=== PATIENT | female | born 2000 | race Caucasian/White ===

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

== ENCOUNTER 2021-01-14 13:52 | Emergency (ER) | payer OTHER, SELFPAY ==
[2021-01-14 14:43] VITALS: BP 146/77; PULSE 114; RESP 16; TEMP 36.8; O2SAT 99; BMI 28.1
[2021-01-14 14:50] LABS: Apearance,Urine Cloudy (Clear); Bilirubin,Urine Negative (Negative); Blood, Urine Trace (Negative); Color,Urine Amber (Yellow); Glucose,Urine (UA) Negative (Negative); Ketones,Urine Negative (Negative); Protein,Urine Negative (Negative); Specific Gravity, Urine 1.025 (1.005-1.030); UTC Leukocyte Esterase,Urine 1+ (Negative); Urobilinogen,Urine 0.2 EU/dl (0.2)
[2021-01-14 14:51] VITALS: BP 146/77; PULSE 114; RESP 16; TEMP 36.8
[2021-01-14 14:51] LABS: UTC Nitrate,Urine Negative (Negative); UTC Pregnancy Test, Urine Negative (Negative)
--- NOTE | 2021-01-14 15:12 | HMH.EDUTC ---
[facility] [place] Clinical Impression: UTI (urinary tract infection) Qualifiers: Urinary tract infection type: site unspecified Hematuria presence: with hematuria Qualified Code(s): N39.0 - Urinary tract infection, site not specified Disposition: Home, Self-Care Condition on Discharge: Good Instructions: DI for Urinary Tract Infection (UTI) Additional Instructions: Drink plenty of fluids. Take tylenol or ibuprofen for pain or fever. Take the medications as directed. Follow up with your regular doctor. GO TO THE ER FOR ANY WORSENING SYMPTOMS Take the antibiotics as directed. We are culturing your urine. This test takes 3 days and it will identify any bacteria that may be causing your uti symptom and tell which antibiotic would treat it best. Follow up with your primary care physician if you are not getting better to go over these results. Prescriptions: Ibuprofen [Ibuprofen 600mg Tablet] 600 mg PO Q6HP PRN #30 tab PRN Reason: Mild Pain Transmission Status: Received by [email or web address] Cefdinir [Omnicef 300mg Capsule] 300 mg PO BID 7 Days #14 cap Transmission Status: Received by [email or web address] Referrals: Zahida Galdamez [Primary Care Provider] - Time of Disposition: 15:22 Medical Decision Making - Medical Records Medical records reviewed: No: I reviewed the patient's medical records. - Trevon Inquiry Pt receiving controlled substance: No Vital Signs: 01/14/21 14:43 01/14/21 14:51 Temperature 98.3 F 98.3 F Temperature Source Oral Pulse Rate 114 H Pulse Rate [Left] 114 H Respiratory Rate 16 16 Blood Pressure 146/77 H Blood Pressure [Right Arm] 146/77 H Blood Pressure Mean [Right Arm] 100 02 Sat by Pulse Oximetry 99 - Lab Data Lab results reviewed: Yes: I reviewed the patient's lab results. Lab Results 01/14/21 14:49: Urine Color Enrique, Urine Appearance Cloudy, Urine pH 7.0, Ur Specific [place] 1.025, Urine Protein Negative, Urine Glucose (UA) Negative, Urine Ketones Negative, Urine Blood Trace, Urine Nitrate Negative, Urine Bilirubin Negative, Urine Urobilinogen 0.2, Ur Leukocyte Esterase 1+ A, Tst Clinic Negative Orders (Tests/Meds): ORDERS Category Date Time Status Urine Culture Stat Micro 01/14/21 14:43 Results [facility] [place] - General Stated complaint: frequent urination, very tired, test Time Seen by Provider: 01/14/21 15:12 Mode of Arrival: Ambulatory Source of Information: Patient Limitations: No Limitations Description of Symptoms (Recalled from Triage Doc. by RN): pt requests a preg. test. pt reports her mother would not allow her to take one at home. pt states her LMP was 12/27-01/03. pt is also UTD on her depo injection. pt believes she may have gotten on the , or . pt states she has the same symptoms as she had with her previous . pt states her breasts are sore, when she urinates she has to lay down after, and that her urine is usally yellow and now it is clear. pts urine is enrique and cloudy. HEENT Symptoms (Recalled from RN notes): No Resp Symptoms (Recalled from RN notes): No Skin Symptoms (Recalled from RN notes): No MS Symptoms (Recalled from RN notes): No Functional Status (Recalled from RN notes): wnl - History of Present Illness Provider Complaint: She states that for the past 2 days she has been more tired than normal and she has just felt bad all over . She has had urinary frequency and some bilateral breast tenderness. She is worried about being because when she was 17 she got and have very similar symptoms to what shes having now. She denies vaginal bleeding, but when she peed this morning she did notice a little pinkish tinge to the water in the toilet afterwards. She denies any fever/chills/body aches/congestion or any other complaints. She is on the depo injection for - Related Data Previous Rx's Medication Instructions Recorded Cyclobenzaprine HCl [
== END 2021-01-14 15:35 | disposition home or self-care (01) ==
PROVIDERS: Emergency Provider Nurse Practitioner Family; PCP Nurse Practitioner Family
DX: N39.0 Urinary tract infection, site not specified (principal)
CPT/HCPCS: 81003; 81025; 87086; 99202; G0463

== ENCOUNTER 2021-01-29 17:06 | Emergency (ER) | payer OTHER, SELFPAY ==
[2021-01-29 17:06] VITALS: BP 100/53; PULSE 90; RESP 16; TEMP 36.6; O2SAT 98; BMI 27.0
[2021-01-29 17:30] VITALS: BP 106/60; PULSE 87; RESP 15; O2SAT 99
[2021-01-29 18:00] VITALS: BP 95/56; PULSE 88; RESP 15; O2SAT 98
--- NOTE | 2021-01-29 18:12 | HMH.EDGENADL ---
ED Disposition Clinical Impression: Rash and nonspecific skin eruption Disposition: Home, Self-Care Condition on Discharge: Good Additional Instructions: Return to the emergency department if rash worsens or any other new symptoms such as severe pain or fever. Referrals: Zahida Galdamez [Primary Care Provider] - - Critical Care Critical Care Time: No Attestation: On 01/29/21, the high probability of a clinically significant, sudden or life threatening deterioration of the following system(s) required my full and direct attention, intervention and personal management. The time I documented below is in addition to time spent performing reported procedures but includes the following listed in this critical care notation. Medical Decision Making - Trevon Inquiry Pt receiving controlled substance: No Vital Signs: 01/29/21 17:06 Temperature 98 F Temperature Source Oral Pulse Rate [Radial] 90 Respiratory Rate 16 Blood Pressure [Right Arm] 100/53 L Blood Pressure Mean [Right Arm] 68 Blood Pressure Position [Right Arm] Sitting 02 Sat by Pulse Oximetry 98 Medical Decision Narrative: Her rash is almost resolved, compared to the picture she shows me it appears to be about 90% gone. I cannot feel definite raised welts, but her report that she feels that the rash is slightly raised would suggest that it is possibly urticarial. I do not suspect any infection or any vascular event. Since it is almost completely resolved I do not feel any treatment is needed at this time. Advised return if anything worsens. General Adult HPI - General Chief complaint: Skin/Abscess/Foreign Body Stated complaint: rash on L leg Time Seen by Provider: 01/29/21 18:12 Mode of Arrival: Ambulatory Limitations: No Limitations Description of Symptoms (Recalled from ER Triage Doc. by RN): TO ED PER PVT CAR WITH C/O RASH TO LT UPPER LEG. REDNESS NOTED AREA FLAT DENIES ANY ITCHING - History of Present Illness HPI narrative: She states that just prior to coming to the emergency department she was sitting on the toilet using the bathroom and noticed that she had a rash on her anterior left thigh. Denies pain or itching. She says that she had somewhat of a burning sensation in the area. She took a picture of it which she has on her phone, which she has shown to me. The rash now looks like it is 90% gone. However the small amount that remains she says feels bubbly by which she means she can feel it with her finger when she rubs her finger over it, like a welt. She denies itching. No fever. No known exposures. No heat applied to the area. No pressure applied to the area. No chemicals applied to the area. No rash on any other part of her body. The rash is erythematous and appears like a grouping of serpiginous erythematous streaks. The initial rash is about the size of my hand. - Related Data Previous Rx's Medication Instructions Recorded Cyclobenzaprine HCl [Flexeril 10mg 5 mg PO Q8HP PRN #15 tab 02/12/19 tablet] Ibuprofen [Ibuprofen 600mg 600 mg PO Q6HP PRN #20 tab 02/12/19 Tablet] Famotidine [Pepcid 20mg Tablet] 20 mg PO DAILY #20 tab 12/14/19 Ondansetron [Zofran 4mg ODT] 4 mg PO BIDP PRN #10 tab 12/14/19 Cefdinir [Omnicef 300mg Capsule] 300 mg PO BID 7 Days #14 cap 01/14/21 Ibuprofen [Ibuprofen 600mg 600 mg PO Q6HP PRN #30 tab 01/14/21 Tablet] Allergies Allergy/AdvReac Type Severity Reaction Status Date / Time No Known Allergies Allergy Verified 12/14/19 14:54 [facility] History - Hepatitis A Screen Drug use history?: No High risk sexual behaviors?: No History of sexually transmitted infection?: No Currently employed?: No Childcare worker?: No Do you have indoor plumbing?: Yes Do you have electricity?: Yes Attestation statement:: This patient has been screened for Hepatitis A risk factors. I have reviewed the patient's past medical history: Yes Medical History: Denies:: Cancer, Diabet
[2021-01-29 18:26] VITALS: BP 100/52; PULSE 78; RESP 16; TEMP 36.8; O2SAT 98
== END 2021-01-29 18:27 | disposition home or self-care (01) ==
PROVIDERS: Emergency Provider Emergency Medicine; PCP Nurse Practitioner Family
DX: R21 Rash and other nonspecific skin eruption (principal)
CPT/HCPCS: 99281

== ENCOUNTER → 2021-07-18 09:37 | Outpatient (CLI) | payer OTHER, SELFPAY ==
--- NOTE | 2021-07-18 09:48 | US_ITS ---
FINAL REPORT CLINICAL HISTORY: ABD PAIN FINDINGS: Sonographic images of the right upper quadrant were obtained. The pancreas is partially obscured.The liver has an unremarkable appearance.The gallbladder appears normal without evidence of gallstones.There is no evidence of biliary ductal dilatation.The common duct measures 2mm. Limited images of the right kidney are unremarkable. IMPRESSION: Unremarkable right upper quadrant ultrasound. Reviewed, Interpreted and Dictated by Miguelito Walters III, MD Transcribed by Juan Carreon Authenticated and [facility]
--- NOTE | 2021-07-18 10:29 | XR_ITS ---
FINAL REPORT CLINICAL HISTORY: ABD PAIN COMPARISON: February 20, 2018 FINDINGS: Chest: A single view of the chest demonstrates no acute cardiopulmonary process. Abdomen: Flat and upright views of the abdomen demonstrate a nonobstructive gas pattern. There is a moderate to large amount of retained stool. There is no free air. IMPRESSION: No acute process. Moderate to large amount of retained stool. Reviewed, Interpreted and Dictated by Miguelito Walters III, MD Transcribed by Jewels Boyce Authenticated and [facility]
== END ==
PROVIDERS: PCP Nurse Practitioner Family; Visit Provider Nurse Practitioner
DX: R10.9 Unspecified abdominal pain (principal)
CPT/HCPCS: 74021; 76705

== ENCOUNTER → 2022-07-30 08:39 | Outpatient (CLI) | payer OTHER, SELFPAY ==
--- NOTE | 2022-07-30 08:46 | US_ITS ---
PROCEDURE INFORMATION: Exam: US Left Breast, Complete US Right Breast, Complete Exam date and time: 07/30/2022 9:11 AM Age: 22 years old Clinical indication: Breast pain; Bilateral; Additional info: Martin breast pain TECHNIQUE: Imaging protocol: Complete ultrasound of all four quadrants of the left breast and the retroareolar regions, including ultrasound of the axilla when performed. Complete ultrasound of all four quadrants of the right breast and the retroareolar regions, including ultrasound of the axilla when performed. COMPARISON: No relevant prior studies available. FINDINGS: Breast: Sonographic images of both breasts including the retroareolar regions, all 4 quadrants and the axilla do not demonstrate any solid or cystic masses. No architectural distortion or acoustical shadowing. No skin thickening or axillary adenopathy. IMPRESSION: No sonographic evidence of malignancy. ASSESSMENT: BI-RADS Category 1: Negative
== END ==
PROVIDERS: PCP Nurse Practitioner Family; Visit Provider Nurse Practitioner
DX: N64.4 Mastodynia (principal)
CPT/HCPCS: 76641

== ENCOUNTER 2022-10-16 17:24 | Emergency (ER) | payer OTHER, SELFPAY ==
[2022-10-16 17:25] VITALS: BP 122/74; PULSE 96; RESP 18; TEMP 37.2; O2SAT 98; BMI 26.8
--- NOTE | 2022-10-16 17:59 | EXP.UTC ---
Discharge Plan Disposition Patient Disposition: Home, Self-Care Condition: Good Prescriptions Prescriptions: New ibuprofen [IBU] 800 mg tablet 800 mg PO Q8HP PRN (Reason: Moderate Pain) Qty: 30 0RF amoxicillin-pot clavulanate 875-125 mg Tablet 1 tab PO Q12H Qty: 20 0RF Referrals Follow up/Referrals: Zahida Galdamez [Primary Care Provider] - See instructions Activity Restrictions/Add. Instructions Additional Instructions/Restrictions: Make sure you call your dentist and get in to get this tooth fixed [email or web address]. Take the augmentin (antibiotic) and the ibuprofen as directed. Follow up with your primary care physician. GO TO THE ER FOR ANY WORSENING SYMPTOMS OR CONCERNS Clinical Impressions Clinical Impression: Abscess, dental, Pain, dental Instructions Patient Instructions: Tooth Abscess, DI for Tooth Abscess, Amoxicillin and Clavulanic Acid Discharge ED Provider: Romeo Kyle [facility] General Stated complaint: dental pain Mode of Arrival: Family Vehicle Source of Information: Patient Limitations: No Limitations Time Seen by Provider: 10/16/22 17:59 Description of Symptoms (Recalled from Triage Doc. by RN): right sided dental abcess. Pt states that she had one in the same exact spot last month. HEENT Symptoms (Recalled from RN notes): Yes Resp Symptoms (Recalled from RN notes): No Skin Symptoms (Recalled from RN notes): No MS Symptoms (Recalled from RN notes): No Functional Status (Recalled from RN notes): n/a Related Data Previous Rx's Medication Instructions Recorded amoxicillin 875 mg-potassium 1 tab PO Q12H #20 tabs 10/16/22 clavulanate 125 mg tablet ibuprofen 800 mg tablet (IBU) 800 mg PO Q8HP PRN Moderate Pain 10/16/22 #30 tabs Allergies Allergy/AdvReac Type Severity Reaction Status Date / Time No Known Allergies Allergy Verified 10/16/22 17:44 Worker's Comp Is this a Worker's Comp case?: No [facility] Disclaimer: The information contained in this section may have been updated after the patient was seen, as this information can be updated by other users. Social History Smoking Status: Never smoker second hand exposure: No alcohol intake: never current occupational status: student Travel in the last 8 weeks: None household members: family housing: house caffeine: Yes ROS Obtained: Yes All systems reviewed & no additional complaints except as documented Constitutional Constitutional: Denies chills and Denies fever(s) Eyes Eyes: Denies eye discharge ENT Ears, Nose, Mouth, and Throat: Reports as per HPI, Denies dizziness, Denies otalgia and Denies sore throat Cardiovascular Cardiovascular: Denies chest pain Respiratory Respiratory: Denies shortness of breath, Denies chest congestion, Denies cough, Denies stridor and Denies wheezing Gastrointestinal Gastrointestingal: Denies nausea or vomiting Musculoskeletal Musculoskeletal: Reports system reviewed and no additional complaints, except as documented and Denies arthralgias Integumentary/Breasts Skin/Breast: Denies rash Neurologic Neurologic: Denies dizziness and Denies paresthesias Allergic/Immunologic Allergic/Immunologic: Denies wheezing Physical Exam General General appearance: alert and in no apparent distress Head Head exam: atraumatic, normocephalic and normal inspection Eye Eye exam: Present normal appearance, PERRL and EOMI ENT ENT exam: Present mucous membranes moist, TM's normal bilaterally and normal external ear exam Expanded ENT Exam Nose exam: Absent sinus tenderness Nasal speculum exam: Bilateral: normal Mouth exam: Present normal external inspection; Absent drooling Teeth exam: Present dental caries, fractured tooth #, dental tenderness # and gingival swelling Throat exam: Present normal inspection Neck Neck exam: Present normal inspection, full ROM and trachea midline; Absent meningismus or lymphadenopathy Chest Chest inspect
[2022-10-16 18:13] VITALS: BP 122/74; PULSE 96; RESP 18; TEMP 37.2; O2SAT 98
== END 2022-10-16 18:13 | disposition home or self-care (01) ==
PROVIDERS: Emergency Provider Nurse Practitioner Family; PCP Nurse Practitioner Family
DX: K04.7 Periapical abscess without sinus (principal)
CPT/HCPCS: 99212; 99214; G0463